=== PATIENT | female | born 1985 | race Caucasian/White ===

== ENCOUNTER 2020-08-12 06:02 | Inpatient (IN) ==
[2020-08-12] MEDS ORDERED: MEPERIDINE 50 MG/1 ML VIAL IV PRN (06:10)
[2020-08-12] MEDS ORDERED: ACETAMINOPHEN 325 MG TABLET PO PRN (06:10)
[2020-08-12] MEDS ORDERED: ONDANSETRON 4 MG/2 ML VIAL IV PRN (06:10)
[2020-08-12] MEDS: LACTATED RINGERS 1,000 ML IV SCH ×2 (06:31→14:30)
[2020-08-12 06:35] LABS: Basophils % 0.4 % (0.0-0.8); Eosinophils # 0.1 10*3/uL (0.0-0.87); Eosinophils % 1.3 % (0.00-10.9); Hemoglobin 13.8 GM/DL (12.0-16.0); Immature Granulocytes % 0.4 %; Immature Granulocytes Absolute 0.04 #; Lymphocytes # 1.3 10*3/uL (1.4-4.0); Lymphocytes % 14.4 % (21.3-54.2); Mean Corpuscular HGB Conc 33.7 GM/DL (32-36); Mean Corpuscular Volume 95.3 FL (87-102); Mean Platelet Volume 10.3 FL (9.6-12.0); Neutrophils % 74.5 % (38.7-73.9); Platelet Count 242 T/CUMM (130-400); Red Cell Distribution Width 13.4 % (9.3-17.3); White Blood Count 9.1 T/CUMM (4-12)
[2020-08-12 06:59] LABS: Bilirubin,Total 0.5 MG/DL (0.2-1.0); Calcium 9.2 MG/DL (8.5-10.1); Osmolality,Calculated 261.5 MOS/KG (273-304); Potassium 4.4 MMOL/L (3.5-5.1); Total Protein 7.4 G/DL (5.0-7.5)
[2020-08-12] MEDS ORDERED: METHYLERGONOVINE 0.2 MG/1 ML AMP ONE (11:31)
[2020-08-12] MEDS ORDERED: CARBOPROST TROMETHAMINE 250 MCG/ML AMP IM ONE (11:31)
[2020-08-12] MEDS ORDERED: miSOPROStoL 200 MCG TABLET ONE (11:31)
[2020-08-12] MEDS ORDERED: TRANEXAMIC ACID 1,000 MG/10 ML VIAL ONE (11:31)
[2020-08-12] MEDS ORDERED: LIDOCAINE 1% 50 ML VIAL ONE (11:32)
[2020-08-12] MEDS ORDERED: OXYTOCIN/LR 20 UNIT/1,000 ML BAG IV SCH (21:30)
[2020-08-13] MEDS: OXYTOCIN/LR 20 UNIT/1,000 ML BAG IV SCH ×2 (01:03→20:43)
[2020-08-13] MEDS ORDERED: AMPICILLIN INJ 2,000 MG in SODIUM CHLORIDE 0.9% 100 ML IV ONE (01:58)
[2020-08-13] MEDS: BUTORPHANOL 2 MG/ML VIAL IV PRN ×2 (05:47→15:56)
[2020-08-13] MEDS: AMPICILLIN INJ 1,000 MG in SODIUM CHLORIDE 0.9% 100 ML IV SCH ×4 (05:51→18:28)
[2020-08-13] MEDS ORDERED: ONDANSETRON 4 MG/2 ML VIAL IV ONE (09:11)
[2020-08-13] MEDS ORDERED: diphenhydrAMINE 50 MG/1 ML VIAL IV PRN ×2 (09:11)
[2020-08-13] MEDS ORDERED: CITRIC ACID/SODIUM CITRATE 30 ML UDCUP PO ONE (09:11)
[2020-08-13] MEDS ORDERED: PROMETHAZINE 25 MG/1 ML VIAL IM ONE (09:11)
[2020-08-13] MEDS ORDERED: NALOXONE 0.4 MG/ML VIAL IV PRN (09:11)
[2020-08-13] MEDS ORDERED: hydrOXYzine HCL 25 MG/1 ML VIAL IM PRN (09:11)
[2020-08-13] MEDS ORDERED: FAMOTIDINE 20 MG/2 ML VIAL IV ONE (09:11)
[2020-08-13] MEDS ORDERED: fentaNYL 2 MCG/ROPIV 0.2% EPID 100 ML EPIDURAL SCH (09:30)
[2020-08-13] MEDS: LACTATED RINGERS 1,000 ML IV SCH ×2 (09:30→11:39)
[2020-08-13] MEDS: ePHEDrine 50 MG/ML VIAL IV PRN ×2 (10:20→10:21)
[2020-08-13 12:37] LABS: Bilirubin,Urine Negative (Negative); Blood, Urine Negative (Negative); Glucose,Urine (UA) Negative (Negative); Hyaline Casts,Urine 1 /LPF (0-3); Ketones,Urine 20 mg/dL (Negative); Mucus,Urine Occasional /LPF (Occasional); Nitrite,Urine Negative (Negative); Protein,Urine Negative; RBC,Urine <1 /HPF (0-4); Squamous Epithelial Cell,Urine Occasional /HPF (0-10); Urine Appearance CLEAR (Clear); Urine Color Yellow (Yellow); Urine Specific Gravity 1.015 (1.001-1.035); Urine Urobilinogen < 2.0 EU/DL (0.2-1.0); WBC,Urine <1 /HPF (0-6)
[2020-08-13] MEDS ORDERED: fentaNYL 100 MCG/2 ML VIAL ONE (16:37)
[2020-08-13] MEDS ORDERED: miSOPROStoL 200 MCG TABLET ONE (19:18)
[2020-08-13] MEDS ORDERED: CARBOPROST TROMETHAMINE 250 MCG/ML AMP IM ONE (19:19)
[2020-08-13 20:57] LABS: Cord Arterial Blood HCO3 20.4 MMOL/L
[2020-08-13 21:00] LABS: Cord Venous Blood HCO3 21.9 MMOL/L; Cord Venous Blood PCO2 45.8 MMHG; Cord Venous Blood PO2 22.2
[2020-08-13] MEDS ORDERED: WITCH HAZEL PADS 100/JAR TOP PRN (21:05)
[2020-08-13] MEDS ORDERED: RHO(D) IMMUNE GLOBULIN 300 MCG SYRINGE IM ONE (21:05)
[2020-08-13] MEDS ORDERED: HYDROCORTISONE 2.5% RECTAL CREAM 30 GM TUBE TOP PRN (21:05)
[2020-08-13] MEDS ORDERED: ACETAMINOPHEN 325 MG TABLET PO PRN (21:05)
[2020-08-13] MEDS ORDERED: MEASLES/MUMPS/RUBELLA VACCINE 0.5 ML VIAL SUBCUT ONE (21:05)
[2020-08-13] MEDS ORDERED: BISACODYL 10 MG SUPP RECTAL PRN (21:05)
[2020-08-13] MEDS ORDERED: ONDANSETRON 4 MG/2 ML VIAL IV PRN (21:05)
[2020-08-13] MEDS ORDERED: BENZOCAINE 20%/MENTHOL 0.5% SPRAY 56 GM CAN TOP PRN (21:05)
[2020-08-13] MEDS ORDERED: OXYTOCIN/LR 20 UNIT/1,000 ML BAG IV ONE (21:05)
[2020-08-13] MEDS ORDERED: LANOLIN 50% CREAM 0.3 OZ TUBE TOP PRN (21:05)
[2020-08-13] MEDS ORDERED: oxyCODONE/ACETAMINOPHEN 5-325 MG TABLET PO PRN ×2 (21:05)
[2020-08-13] MEDS ORDERED: DIPH/TET/ACEL PERT BOOSTER VACCINE 0.5 ML VIAL IM ONE (21:05)
[2020-08-13] MEDS ORDERED: ceFAZolin 2,000 MG in PREMIX 1 EACH IV SCH (21:30)
[2020-08-13] MEDS ORDERED: BUTALBITAL/ACETAMIN/CAFFEINE 50-325-40 MG TABLET PO PRN (22:38)
[2020-08-14 07:06] LABS: Basophils % 0.2 % (0.0-0.8); Hematocrit 27.5 VOL% (35.7-47.0); Hemoglobin 9.1 GM/DL (12.0-16.0); Immature Granulocytes % 0.9 %; Immature Granulocytes Absolute 0.17 #; Lymphocytes # 1.2 10*3/uL (1.4-4.0); Lymphocytes % 6.2 % (21.3-54.2); Mean Corpuscular HGB Conc 33.1 GM/DL (32-36); Mean Corpuscular Volume 97.5 FL (87-102); Mean Platelet Volume 10.2 FL (9.6-12.0); Neutrophils % 85.7 % (38.7-73.9); Platelet Count 171 T/CUMM (130-400); Red Blood Count 2.82 MC/CUMM (3.8-5.5); Red Cell Distribution Width 13.2 % (9.3-17.3); White Blood Count 19.7 T/CUMM (4-12)
[2020-08-14] MEDS ORDERED: fentaNYL 100 MCG/2 ML VIAL ONE (07:25)
[2020-08-14] MEDS: DOCUSATE SODIUM 100 MG CAPSULE PO SCH ×2 (08:55→20:45)
[2020-08-14] MEDS: IBUPROFEN 800 MG TABLET PO PRN ×2 (11:17→20:46)
[2020-08-15] MEDS: IBUPROFEN 800 MG TABLET PO PRN ×2 (04:05→10:18)
[2020-08-15] MEDS: DOCUSATE SODIUM 100 MG CAPSULE PO SCH (09:05)
[2020-08-15 09:47] VITALS: BP 119/95
== END 2020-08-15 12:40 | disposition home or self-care (01) | DRG 768 ==
LOC: N.LD 06:02 → N.OB 08-13 23:55
PROVIDERS: ADMIT Obstetrics & Gynecology; ATTEND Obstetrics & Gynecology